=== PATIENT | male | born 1955 | race Caucasian/White ===

== ENCOUNTER 2018-07-14 08:39 | Emergency (ER) | payer MEDICARE, OTHER, SELFPAY ==
[2018-07-14 08:47] VITALS: BP 141/79; PULSE 72; RESP 15; O2SAT 99; BMI 27.4
--- NOTE | 2018-07-14 08:49 | DI.RAD.S_ITS ---
PROCEDURE: XR CHEST 1V INDICATIONS: irregular heart beat TECHNIQUE: One view of the chest was acquired. COMPARISON: None. FINDINGS: Surgical changes and devices: None. Lungs and pleura: Lungs are clear. No pleural effusions or pneumothorax. Mediastinum: Mediastinal contours appear normal. Heart size is normal. Bones and chest wall: Age-appropriate bony degenerative changes are seen. No suspicious bony lesions. Overlying soft tissues appear unremarkable. IMPRESSION: Portable chest within normal limits. Dictated by: Noah Lindo M.D. on 07/14/2018 at 8:18 Approved by: Noah Lindo M.D. on 07/14/2018 at 8:18
[2018-07-14] MEDS: SODIUM CHLORIDE 0.9% 1,000 ML 150 ML IV (08:59)
[2018-07-14 09:02] VITALS: BP 142/94; PULSE 101; RESP 20; O2SAT 99
[2018-07-14 09:03] LABS: Add Manual Diff / Slide Review NO; Basophils Absolute Auto 100 /uL (0-100); Basophils Percent Auto 1.2 % (0-2); Eosinophils Absolute Auto 100 /uL (0-450); Eosinophils Percent Auto 1.8 % (2-4); Hematocrit 39.9 % (41-53); Hemoglobin 13.9 g/dL (13.5-17.5); Lymphocytes Absolute Auto 1300 /uL (1100-4500); Mean Corpuscular HGB Conc 34.9 % (30-36); Mean Corpuscular Volume 100.4 fL (80-100); Monocytes Absolute Auto 400 /uL (0-900); Monocytes Percent Auto 10.1 % (3-14); Neutrophils Absolute Auto 2400 /uL (1500-7000); Neutrophils Percent Auto 55.9 % (50-75); Platelet Count 148 X10^3/uL (150-400); Red Blood Cell Count 3.98 X10^6/uL (4.5-5.9); Red Cell Distribution Width 13.3 % (11.6-14.8); White Blood Cell Count 4.3 X10^3/uL (4.5-11.0)
--- NOTE | 2018-07-14 09:07 | ED.ARRPALP ---
HPI - Arrhythmia/Palpitations General Chief Complaint: Arrhythmia/Palpitations Stated Complaint: Irregular heart beat Time Seen by Provider: 07/14/18 08:52 Source: patient Mode of arrival: ambulatory Limitations: no limitations History of Present Illness HPI narrative: Patient is a 63-year-old male who presents with heart palpitations. He states that he has been feeling more frequently. It is more like a fluttering in his chest. He is worried because his brother as atrial fibrillation. He currently does not feel it now but did feel it this morning. He says it lasts for a few minutes. He now has no shortness of breath, occasional dizziness as he does not pass out no actual pain. he is in normal sinus rhythm on monitor and on his EKG. MD complaint: palpitations Severity: mild Context: occurred during rest Associated symptoms: denies other symptoms Related Data Home Medications Medication Instructions Recorded Confirmed cholecalciferol (vitamin D3) 1,000 unit PO DAILY 07/14/18 07/14/18 [Vitamin D3] levothyroxine [Synthroid] 75 mcg PO DAILY 07/14/18 07/14/18 pantoprazole 40 mg PO DAILY 07/14/18 07/14/18 Allergies Allergy/AdvReac Type Severity Reaction Status Date / Time No Known Drug Allergies Allergy Verified 07/14/18 08:47 Review of Systems Review of Systems GENERAL: Denies chills, fatigue, malaise, fever, sweats, travel HEENT: Denies sinus pain, ear pain, sore throat, difficulty swallowing, neck pain RESPIRATORY: Denies shortness of breath, dyspnea with exertion, cough, wheeze CARDIOVASCULAR: See HPI GASTROINTESTINAL: Denies nausea, vomiting, abdominal pain, diarrhea, constipation, melena. : Denies dysuria, frequency, incontinence, hematuria, urinary retention, flank pain. MUSCULOSKELETAL: Denies weakness, joint pain, or bony pain SKIN: No rash, no erythema, no pruritus NEUROLOGIC: Denies weakness, dizziness, headache, numbness, change in speech, confusion PSYCHIATRIC: No concerning psychosocial issues. 12 point review of systems is negative except for those stated above and HPI [facility] Medical History Patient denies significant medical history (Acute) Social History Smoking Status: Never smoker Social History Smoking Status: Never smoker Exam Initial Vital Signs Initial Vital Signs: Vital Signs Pulse Rate 72 07/14/18 08:47 Respiratory Rate 15 07/14/18 08:47 Blood Pressure 141/79 H 07/14/18 08:47 Pulse Oximetry 99 07/14/18 08:47 GENERAL: Alert well-appearing male who appears younger than stated age HEENT: Head atraumatic,EOMI, pupils reactive CARDIOVASCULAR: Regular rate and rhythm without murmurs, rubs or gallops. RESPIRATORY: Breath sounds equal bilaterally, no wheezes rales or rhonchi. ABDOMEN: Soft, nontender. Normoactive bowel sounds all 4 quadrants. No guarding or rebound. : No CVA tenderness EXTREMITIES: Normal range of motion, no clubbing or edema. Neurovascularly intact NEUROLOGICAL: Alert and oriented x4.Normal gait and speech. Cranial nerves II through XII grossly intact. SKIN: Warm, dry, no laceration, no petechiae, no rashes or lesions. Course Orders Ordered: ED Orders 07/14/18 08:47 EKG-12 Lead Stat 07/14/18 08:49 XR chest 1V Stat 07/14/18 08:55 Basic Metabolic Panel Stat Complete Blood Count AUTO DIFF Stat Magnesium Stat Thyroid Stimulating Hormone Stat Troponin & CK Cardiac Panel Stat Discontinued Medications Sodium Chloride (Normal Saline 0.9%) 1,000 mls @ 150 mls/hr IV CONT TAIWO Last Infusion: 07/14/18 10:45 Dose: 0 mls/hr Admin: 07/14/18 08:59 Dose: 150 mls/hr Vital Signs - 8 hr 07/14/18 08:47 07/14/18 09:02 07/14/18 09:30 Pulse Rate 72 101 H 60 Respiratory Rate 15 20 16 Blood Pressure 141/79 H Blood Pressure [Left Wrist] 142/94 H 115/69 Pulse Oximetry 99 99 98 07/14/18 10:00 07/14/18 10:47 Pulse Rate 58 L 58 L Respiratory Rate 15 14 Blood Pressure 126/67 Blood Pressure [Left Wrist] 124/71 Pulse Oximetry 98 99 MDM - Arrhythmia/Palpitations Lab Data Attestation: I reviewed the patient's lab results. Result diagrams: 07/14/18 08:55 07/14/18 08:55 Lab Results 07/14/18 07/14/18 07/14/18 Range/Units 08:55 08:55 08:55 WBC 4.3 L (4.5-11.0) X10^3/uL RBC 3.98 L (4.5-5.9) X10^6/uL Hgb 13.9 (13.5-17.5) g/dL Hct 39.9 L (41-53) % MCV 100.4 H (80-100) fL MCH 35.0 H (26-34) PG MCHC 34.9 (30-36) % RDW 13.3 (11.6-14.8) % Plt Count 148 L (150-400) X10^3/uL Neut % (Auto) 55.9 (50-75) % Lymph % (Auto) 31.0 (25-40) % Nash % (Auto) 10.1 (3-14) % Eos % (Auto) 1.8 L (2-4) % Baso % (Auto) 1.2 (0-2) % Neut # (Auto) 2400 (9765-8594) /uL Lymph # (Auto) 1300 (2193-0913) /uL Nash # (Auto) 400 (0-900) /uL Eos # (Auto) 100 (0-450) /uL Baso # (Auto) 100 (0-100) /uL Sodium 139 (137-145) mmol/L Potassium 3.9 (3.4-5.1) mmol/L Chloride 105 (98-107) mmol/L Carbon Dioxide 27 (22-32) mmol/L BUN 14 (9-20) mg/dL Creatinine 0.80 (0.66-1.25) mg/dL Estimated GFR > 60.0 (>60) mL/min BUN/Creatinine Ratio 17.5 (6-22) Glucose 93 (80-110) mg/dL Calcium 9.3 (8.4-10.2) mg/dL Magnesium 2.0 (1.6-2.3) mg/dL Total Creatine Kinase 66 (55-170) U/L CK-MB (CK-2) TNP CK-MB (CK-2) Rel Index TNP Troponin I < 0.012 (0.01-0.034) ng/mL TSH 4.88 H (0.47-4.68) uIU/mL Imaging Data Chest x-ray: Radiologist's impression: PROCEDURE: XR CHEST 1V INDICATIONS: irregular heart beat TECHNIQUE: One view of the chest was acquired. COMPARISON: None. FINDINGS: Surgical changes and devices: None. Lungs and pleura: Lungs are clear. No pleural effusions or pneumothorax. Mediastinum: Mediastinal contours appear normal. Heart size is normal. Bones and chest wall: Age-appropriate bony degenerative changes are seen. No suspicious bony lesions. Overlying soft tissues appear unremarkable. IMPRESSION: Portable chest within normal limits. Dictated by: Noah Lindo M.D. on 07/14/2018 at 8:18 ECG Data Attestation: I personally reviewed and interpreted this ECG as follows: Prior ECG tracings: not available for review Interpretation: normal sinus rhythm rate 65 P are interval [address] changes no T-wave inversions. MDM Narrative Medical decision making narrative: Patient does have a 1st degree AV block not on any beta-blockers. He has been on the monitor in sinus rhythm. I recommend Holter monitor and outpatient follow-up. Discharge Plan Departure Patient Disposition: Home Clinical Impression: Palpitations Discharge Date/Time: 07/14/18 10:47 Interventions: ED Discharge Assessment Last Done: 07/14/18 10:47 Instructions: Arrhythmias Activity Restrictions/Additional Instructions: *You have been diagnosed with palpitations *What to do: At this time you do have was called 1st degree AV block, but unlikely to be causing any of her palpitations or problems. Recommend a Holter monitor which can be set up with a primary care physician. I strongly recommend getting a PCP. Thyroid off also looks okay today. *Continue to take medications as directed *Follow up with your primary care provider in 2-3 days You may call [phone] *Return to ER if you should have increasing heart palpitations dizziness, passing out, chest pain, shortness of breath or any new, worsening or concerning symptoms Prescriptions: No Action levothyroxine [Synthroid] 75 mcg tablet 75 mcg PO DAILY RF: 0 pantoprazole 40 mg tablet,delayed release (DR/EC) 40 mg PO DAILY RF: 0 cholecalciferol (vitamin D3) [Vitamin D3] 1,000 unit Capsule 1,000 unit PO DAILY RF: 0 Referrals: [facility] [Provider Group] [facility] [Provider Group] [facility] [Provider Group]
[2018-07-14 09:17] LABS: BUN Creatinine Ratio 17.5 (6-22); Blood Urea Nitrogen 14 mg/dL (9-20); Calcium 9.3 mg/dL (8.4-10.2); Carbon Dioxide 27 mmol/L (22-32); Chloride 105 mmol/L (98-107); Creatine Kinase 66 U/L (55-170); Estimated Glomerular Filt Rate > 60.0 mL/min (>60); Glucose 93 mg/dL (80-110); HEMOLYSIS < 15 (0-50); Potassium 3.9 mmol/L (3.4-5.1); Sodium 139 mmol/L (137-145)
[2018-07-14 09:28] LABS: Troponin I < 0.012 ng/mL (0.01-0.034)
[2018-07-14 09:30] VITALS: BP 115/69; PULSE 60; RESP 16; O2SAT 98
[2018-07-14 10:00] VITALS: BP 124/71; PULSE 58; RESP 15; O2SAT 98
[2018-07-14 10:01] LABS: Thyroid Stimulating Hormone 4.88 uIU/mL (0.47-4.68)
[2018-07-14 10:47] VITALS: BP 126/67; PULSE 58; RESP 14; O2SAT 99
== END 2018-07-14 10:47 | disposition home or self-care (01) ==
PROVIDERS: Emergency Provider Emergency Medicine
DX: I44.0 Atrioventricular block, first degree (principal); R00.2 Palpitations; R42 Dizziness and giddiness
CPT/HCPCS: 36591; 71045; 80048; 82550; 83735; 84443; 84484; 85025; 93005; 93041; 96360; 96361; 99284; 99285

== ENCOUNTER 2020-02-03 08:41 | Emergency (ER) | payer MEDICARE, OTHER, SELFPAY ==
[2020-02-03 08:50] VITALS: BP 144/87; PULSE 85; RESP 16; TEMP 36.9; O2SAT 96; BMI 27.4
--- NOTE | 2020-02-03 08:51 | ED.EPISTAXIS ---
HPI - Epistaxis General Chief complaint: Nasal Problem Stated complaint: bloody nose Time Seen by Provider: 02/03/20 08:44 Source: patient Mode of arrival: Ambulatory Limitations: no limitations History of Present Illness HPI Narrative: Patient is a 64-year-old male with history of abdominal aortic aneurysm on aspirin presenting with a nose bleed. He says it is on the left side started roughly at 4:00 a.m.. He has used Kleenex as packing. He went to the walk-in clinic and he was referred to the ED for evaluation. He said it initially was dripping down his throat however it is no longer dripping down his throat. A nasal clip has been applied. complaint: epistaxis Location: left nostril Onset (ago): hour(s) Context: history of previous and aspirin use Related Data Home Medications Medication Instructions Recorded Confirmed cholecalciferol (vitamin D3) 1,000 unit PO DAILY 07/14/18 07/14/18 [Vitamin D3] levothyroxine [Synthroid] 75 mcg PO DAILY 07/14/18 07/14/18 pantoprazole 40 mg PO DAILY 07/14/18 07/14/18 Allergies Allergy/AdvReac Type Severity Reaction Status Date / Time No Known Drug Allergies Allergy Verified 07/14/18 08:47 Review of Systems Review of Systems Narrative: GENERAL: Denies chills,fever HEENT: See HPI RESPIRATORY: Denies dyspnea, cough, wheezing CARDIOVASCULAR: Denies chest pain, palpitations GASTROINTESTINAL: Denies nausea, vomiting MUSCULOSKELETAL: Denies extremity pain, injury SKIN: No rash, no laceration, no pruritus NEUROLOGIC: Denies weakness, dizziness, headache, numbness 8 point review of systems is negative except for those stated above and HPI Patient History Medical History Abdominal aortic aneurysm (Acute) Patient denies significant medical history (Acute) Social History Smoking Status: Never smoker Smoking Status: Never smoker alcohol intake frequency: a few times a week Substance Use Type: does not use Exam Initial Vital Signs Initial Vital Signs: Vital Signs Temperature 98.5 F 02/03/20 08:50 Pulse Rate 85 02/03/20 08:50 Respiratory Rate 16 02/03/20 08:50 Blood Pressure 144/87 H 02/03/20 08:50 Pulse Oximetry 96 02/03/20 08:50 GENERAL: Well-appearing, well-nourished and in no acute distress. HEENT: Clot removed from right [place] nasal clip placed CARDIOVASCULAR: peripheral pulses in tact, cap refill <2 sec RESPIRATORY: No respiratory distress, speaks in full sentences without difficulty EXTREMITIES: Normal range of motion, no clubbing or edema. Neurovascularly intact NEUROLOGICAL: Cranial nerves II through XII grossly intact. Normal gait and speech. SKIN: Warm, dry, no petechiae, no rashes or lesions. Procedures Epistaxis Control Time Out Performed: Yes Nostril: left Clots Removed by: blowing nose Patient Tolerated Procedure: well Course Orders Ordered: Discontinued Medications Oxymetazoline HCl (Nasal Decongestant) 2 sprays NASAL NOW ONE Stop: 02/03/20 08:49 Vital Signs Vital signs: Vital Signs - 8 hr 02/03/20 08:50 02/03/20 09:22 Temperature 98.5 F Pulse Rate 85 70 Respiratory Rate 16 18 Blood Pressure 144/87 H 137/81 Pulse Oximetry 96 94 MDM - Epistaxis MDM Narrative Medical decision making narrative: Nasal clip remained in place for about 15 minutes it was removed no active bleeding identified the [place] was evaluated. Patient given nasal clip to go home. Discharge Plan Departure Patient Disposition: Home Clinical Impression: Epistaxis Discharge Date/Time: 02/03/20 09:23 Instructions: DI for Nosebleed Activity Restrictions/Additional Instructions: *You have been diagnosed with nose bleed *What to do: If your bleeding should return you may place 1-2 sprays of Afrin on the side of the nose bleed and please place clip. Keep sitting upright and possibly tilting her head slightly forward do not tilt her head backwards. Leave clip in place for 20-30 minutes. If bleeding continues or is dripping down her throat continuously please return to the emergency department for further evaluation and treatment *Continue to take medications as directed *Follow up with your primary care provider in 2-3 days *Return to ER if you should have persistent bleeding despite steps above, or any new, worsening or concerning symptoms Prescriptions: No Action levothyroxine [Synthroid] 75 mcg tablet 75 mcg PO DAILY RF: 0 pantoprazole 40 mg tablet,delayed release (DR/EC) 40 mg PO DAILY RF: 0 cholecalciferol (vitamin D3) [Vitamin D3] 1,000 unit Capsule 1,000 unit PO DAILY RF: 0 Referrals: Miscellaneous,Doctor, MD [Primary Care Provider] -
[2020-02-03 09:22] VITALS: BP 137/81; PULSE 70; RESP 18; O2SAT 94
== END 2020-02-03 09:23 | disposition home or self-care (01) ==
PROVIDERS: Emergency Provider Emergency Medicine
DX: R04.0 Epistaxis (principal)
CPT/HCPCS: 99281; A9270

== ENCOUNTER → 2020-09-14 14:13 | Outpatient (CLI) | payer MEDICARE, OTHER, SELFPAY ==
[2020-09-14 15:07] LABS: Add Manual Diff / Slide Review NO; Basophils Absolute Auto 100 /uL (0-100); Basophils Percent Auto 0.9 % (0-2); Eosinophils Absolute Auto 100 /uL (0-450); Eosinophils Percent Auto 1.7 % (2-4); Hematocrit 37.7 % (41-53); Hemoglobin 12.8 g/dL (13.5-17.5); Lymphocytes Absolute Auto 1800 /uL (1100-4500); Lymphocytes Percent Auto 30.1 % (25-40); Mean Corpuscular HGB Conc 33.9 % (30-36); Mean Corpuscular Volume 100.2 fL (80-100); Monocytes Absolute Auto 600 /uL (0-900); Monocytes Percent Auto 10.9 % (3-14); Neutrophils Absolute Auto 3300 /uL (1500-7000); Neutrophils Percent Auto 56.4 % (50-75); Platelet Count 161 X10^3/uL (150-400); Red Blood Cell Count 3.76 X10^6/uL (4.5-5.9); Red Cell Distribution Width 14.5 % (11.6-14.8); White Blood Cell Count 5.8 X10^3/uL (4.5-11.0)
== END ==
PROVIDERS: Referring Provider Anesthesiology; Visit Provider Anesthesiology
DX: Z01.812 Encounter for preprocedural laboratory examination (principal); Z13.6 Encounter for screening for cardiovascular disorders
CPT/HCPCS: 36415; 85025; 93005; 93010